=== PATIENT | male | born 1945 | race Two or more races ===

== ENCOUNTER 2018-05-18 15:46 | Emergency (ER) | payer MEDICARE, BC ==
[~2018-05-18] VITALS: Ht 172.7 cm; Wt 77.3 kg
[2018-05-18] MEDS ORDERED: aspirin 81mg tab.chew PO ONE (15:55)
[2018-05-18] MEDS ORDERED: normal saline 1000ML IV soln IVB ONE (15:55)
[2018-05-18] MEDS ORDERED: diltiazem 5mg/ml 5ml inj. IV ONE (15:55)
[2018-05-18 16:03] LABS: BASOPHILS % (AUTO) 0.3 % (0-1); EOSINOPHILS # (AUTO) 0.2 X10'3 (0-0.9); EOSINOPHILS % (AUTO) 1.7 % (0-6); HEMATOCRIT 34.4 % (42.0-52.0); HEMOGLOBIN 11.1 g/dl (14.0-17.9); LYMPHOCYTES # (AUTO) 1.4 X10'3 (1.1-4.8); LYMPHOCYTES % (AUTO) 9.9 % (21-51); MEAN CORPUSCULAR HEMOGLOBIN 27.9 PG (27.0-31.0); MEAN CORPUSCULAR HGB CONC 32.3 % (33.0-36.5); MEAN CORPUSCULAR VOLUME 86.4 FL (78-98); MEAN PLATELET VOLUME 7.2 FL (7.4-10.4); MONOCYTES # (AUTO) 0.7 X10'3 (0-0.9); MONOCYTES % (AUTO) 4.9 % (2-12); NEUTROPHILS # (AUTO) 12.2 X10'3 (1.8-7.7); NEUTROPHILS % (AUTO) 83.2 % (42-75); PLATELET COUNT 297 X10'3 (140-440); RED BLOOD COUNT 3.98 X10'6 (4.70-6.10); RED CELL DISTRIBUTION WIDTH 16.9 % (11.5-14.5); WHITE BLOOD COUNT 14.6 X10'3 (4.5-11.0)
[2018-05-18 16:17] LABS: ALANINE AMINOTRANSFERASE 27 U/L (12-78); ALBUMIN 2.5 G/DL (3.4-5.0); ALKALINE PHOSPHATASE 58 IU/L (46-116); ANION GAP 11 (8-16); CALCIUM 9.2 MG/DL (8.5-10.1); CHLORIDE 103 MMOL/L (99-107); CREATININE 1.51 MG/DL (0.60-1.10); POTASSIUM 4.1 MMOL/L (3.5-5.1); SODIUM 140 MMOL/L (135-145); TOTAL CARBON DIOXIDE 25.6 MMOL/L (24-32); eGFR 45 ML/MIN
[2018-05-18 16:25] LABS: ALBUMIN/GLOBULIN RATIO 0.5 (1.1-1.5); ASPARTATE AMINO TRANSFERASE 20 U/L (10-37); BILIRUBIN,TOTAL 0.3 MG/DL (0.1-1.0); BLOOD UREA NITROGEN 18 MG/DL (7-18); BUN/CREATININE RATIO 11.9 (5.4-32.0); GLUCOSE 206 MG/DL (70-104); TOTAL PROTEIN 7.4 G/DL (6.4-8.2)
[2018-05-18 16:27] LABS: MAGNESIUM 1.9 MG/DL (1.5-2.4)
[2018-05-18] MEDS ORDERED: METO-395 PO (16:54)
[2018-05-18 19:25] VITALS: BP 117/79
[2018-05-19] MEDS ORDERED: POTA10TA10 PO (13:32)
[2018-05-19] MEDS ORDERED: HYDR-4353 PO (13:32)
[2018-05-19] MEDS ORDERED: FLO0.4C PO (13:32)
[2018-05-19] MEDS ORDERED: METF500T PO (13:32)
[2018-05-19] MEDS ORDERED: ALB0.5UD IH (13:32)
[2018-05-19] MEDS ORDERED: FURO-150 PO (13:32)
[2018-05-19] MEDS ORDERED: ALBU18HF2 INH (13:32)
[2018-05-19] MEDS ORDERED: MYCO250C46 PO (13:32)
[2018-05-19] MEDS ORDERED: SULF1TAB48 PO (13:32)
[2018-05-19] MEDS ORDERED: PRED5TAB PO (13:32)
[2018-05-19] MEDS ORDERED: GABA600T2 PO (13:32)
[2018-05-19] MEDS ORDERED: RIVA15TA PO (13:32)
== END 2018-05-18 19:56 | disposition home or self-care (01) ==
LOC: ER 15:47
DX: R42 Dizziness and giddiness (principal); I48.91 Unspecified atrial fibrillation; G89.29 Other chronic pain; Z79.899 Other long term (current) drug therapy
CPT/HCPCS: 36415; 71045; 80053; 83735; 83880; 84439; 84443; 84484; 85025; 93005; 96361; 96374; 99285; J3490

== ENCOUNTER 2018-05-19 12:54 | Inpatient (IN) | payer MEDICARE, OTHER ==
[~2018-05-19] VITALS: Ht 172.7 cm; Wt 68.4 kg
[~2018-05-19 12:54] MED LIST: METO-395 PO; etomidate 2mg/ml inj. ONE; rocuronium 10mg/ml inj IV ONE
[2018-05-19] MEDS ORDERED: aspirin 81mg tab.chew PO ONE (12:55)
[2018-05-19] MEDS ORDERED: diltiazem 5mg/ml 5ml inj. IV ONE (13:00)
[2018-05-19 13:20] LABS: BASOPHILS % (AUTO) 0.1 % (0-1); EOSINOPHILS # (AUTO) 0.4 X10'3 (0-0.9); EOSINOPHILS % (AUTO) 1.9 % (0-6); HEMATOCRIT 31.4 % (42.0-52.0); HEMOGLOBIN 9.9 g/dl (14.0-17.9); LYMPHOCYTES # (AUTO) 1.4 X10'3 (1.1-4.8); LYMPHOCYTES % (AUTO) 7.7 % (21-51); MEAN CORPUSCULAR HEMOGLOBIN 27.7 PG (27.0-31.0); MEAN CORPUSCULAR HGB CONC 31.5 % (33.0-36.5); MEAN CORPUSCULAR VOLUME 87.9 FL (78-98); MEAN PLATELET VOLUME 7.1 FL (7.4-10.4); MONOCYTES # (AUTO) 0.8 X10'3 (0-0.9); MONOCYTES % (AUTO) 4.5 % (2-12); NEUTROPHILS % (AUTO) 85.8 % (42-75); PLATELET COUNT 308 X10'3 (140-440); RED BLOOD COUNT 3.57 X10'6 (4.70-6.10); RED CELL DISTRIBUTION WIDTH 16.7 % (11.5-14.5); WHITE BLOOD COUNT 18.6 X10'3 (4.5-11.0)
[2018-05-19] MEDS ORDERED: ALB0.5UD IH (13:32)
[2018-05-19] MEDS ORDERED: FURO-150 PO (13:32)
[2018-05-19] MEDS ORDERED: HYDR-4353 PO (13:32)
[2018-05-19] MEDS ORDERED: MYCO250C46 PO (13:32)
[2018-05-19] MEDS ORDERED: RIVA15TA PO (13:32)
[2018-05-19] MEDS ORDERED: FLO0.4C PO (13:32)
[2018-05-19] MEDS ORDERED: POTA10TA10 PO (13:32)
[2018-05-19] MEDS ORDERED: METF500T PO (13:32)
[2018-05-19] MEDS ORDERED: SULF1TAB48 PO (13:32)
[2018-05-19] MEDS ORDERED: PRED5TAB PO (13:32)
[2018-05-19] MEDS ORDERED: ALBU18HF2 INH (13:32)
[2018-05-19] MEDS ORDERED: GABA600T2 PO (13:32)
[2018-05-19 13:39] LABS: D-DIMER 0.58 MG/L FEU (0-0.50); INR 1.5 INR; PARTIAL THROMBOPLASTIN TIME 26 SECONDS (22-32); PROTHROMBIN TIME 15.1 SECONDS (9.0-12.0)
[2018-05-19 13:44] LABS: ALANINE AMINOTRANSFERASE 24 U/L (12-78); ALBUMIN 2.4 G/DL (3.4-5.0); ALKALINE PHOSPHATASE 53 IU/L (46-116); ANION GAP 13 (8-16); CALCIUM 8.9 MG/DL (8.5-10.1); CHLORIDE 103 MMOL/L (99-107); CREATININE 1.47 MG/DL (0.60-1.10); MAGNESIUM 1.6 MG/DL (1.5-2.4); POTASSIUM 3.9 MMOL/L (3.5-5.1); SODIUM 142 MMOL/L (135-145); TOTAL CARBON DIOXIDE 25.6 MMOL/L (24-32); eGFR 47 ML/MIN
[2018-05-19 13:49] LABS: ALBUMIN/GLOBULIN RATIO 0.5 (1.1-1.5); ASPARTATE AMINO TRANSFERASE 15 U/L (10-37); BILIRUBIN,TOTAL 0.3 MG/DL (0.1-1.0); BLOOD UREA NITROGEN 19 MG/DL (7-18); BUN/CREATININE RATIO 12.9 (5.4-32.0); GLUCOSE 223 MG/DL (70-104); TOTAL PROTEIN 6.8 G/DL (6.4-8.2)
[2018-05-19] MEDS ORDERED: magnesium 4gm in 100ml NS 100 ML IV PRN (15:00)
[2018-05-19] MEDS ORDERED: morphine 2 MG/ML inj. syringe IV PRN (15:00)
[2018-05-19] MEDS ORDERED: magnesium 1gm/100ml D5W IVPB 100 ML IV PRN (15:00)
[2018-05-19] MEDS ORDERED: potassium Cl 40MEQ/NS 500ml 500 ML IV PRN ×2 (15:00)
[2018-05-19] MEDS ORDERED: potassium Cl 20 mEq SR tablet PO PRN ×2 (15:00)
[2018-05-19] MEDS ORDERED: HYDROcodone/acetaminophen 5mg/325mg tablet PO PRN (15:00)
[2018-05-19] MEDS ORDERED: magnesium Cl slow-release 64mg tablet PO PRN (15:00)
[2018-05-19] MEDS ORDERED: ondansetron/PF 4mg/2ml inj IV PRN (15:00)
[2018-05-19] MEDS ORDERED: acetaminophen 325mg tablet PO PRN ×2 (15:00)
[2018-05-19] MEDS ORDERED: mag hydrox/Alum hydrox/simeth 30ml oral suspension PO PRN (15:00)
[2018-05-19] MEDS ORDERED: dextrose ORAL solution 15 GM/59 ML bottle PO PRN ×2 (15:10)
[2018-05-19] MEDS ORDERED: MESSAGE TO PHARMACY PO ONE (15:10)
[2018-05-19] MEDS ORDERED: glucagon, human recombinant 1mg kit SUBCUT PRN (15:10)
[2018-05-19] MEDS ORDERED: dextrose 50%-water 50ml dispensing syringe IV PRN ×2 (15:10)
[2018-05-19] MEDS: normal saline 1000ml 1,000 ML IV SCH (15:37)
[2018-05-19] MEDS: CefTRIAXone 2gm/D5W 50ml 50 ML IV SCH (15:38)
[2018-05-19 16:05] VITALS: BP 113/73
[2018-05-19 17:29] LABS: HEMOGLOBIN A1C 8.2 % (4.5-6.2)
[2018-05-19] MEDS ORDERED: iohexol 350MG/ML 100ml bottle IV ONE (17:46)
[2018-05-19] MEDS: MESSAGE TO NURSING PO NR (18:00)
[2018-05-19 19:00] VITALS: BP 110/72
[2018-05-19] MEDS: metoprolol succinate 25mg (24-HOUR) SR. Tablet PO SCH (19:35)
[2018-05-19] MEDS: rivaroxaban 15mg tablet PO SCH (19:35)
[2018-05-19] MEDS: albuterol 2.5 MG/3 ML nebule NEB SCH ×3 (19:38→23:52)
[2018-05-19] MEDS: insulin Lispro (HumaLOG) vial - multi-dose SQ SCH (19:41)
[2018-05-19] MEDS ORDERED: mycophenolate mofetil 250mg capsule PO SCH (20:00)
[2018-05-19] MEDS ORDERED: diltiazem 30mg tablet PO SCH (20:00)
[2018-05-19] MEDS ORDERED: temazepam 15mg capsule PO PRN (21:00)
[2018-05-19] MEDS: insulin glargine (Lantus) pen - multi-dose SQ SCH (21:32)
[2018-05-20] VITALS (22 sets, daily range): BP systolic 79–155; BP diastolic 50–98
[2018-05-20 00:26] LABS: ABG BASE EXCESS 0.1 mmol/L (-2.0-3.0); ABG OXYGEN SATURATION 91.1 % (95-98); ABG PCO2 (T) 35.5 mmHg (35.0-48.0); ABG PH (T) 7.446 (7.350-7.450); ABG PO2 (T) 59.7 mmHg (83-108); ALLEN'S TEST Positive; FCOHb 0.3 % (0.5-1.5); FLOW 15 L/min; FMetHb 0.1 % (0.3-1.12); FO2Hb 90.7 % (94-100); PATIENT TEMPERATURE 36.7; TOTAL HEMOGLOBIN 10.3 G/dl (14.0-18.0)
[2018-05-20] MEDS ORDERED: furosemide 10 MG/1 ML 10ml inj IV ONE (00:35)
[2018-05-20 01:10] LABS: BASOPHILS % (AUTO) 0.1 % (0-1); EOSINOPHILS % (AUTO) 0.1 % (0-6); HEMATOCRIT 28.3 % (42.0-52.0); HEMOGLOBIN 9.6 g/dl (14.0-17.9); LYMPHOCYTES # (AUTO) 2.1 X10'3 (1.1-4.8); LYMPHOCYTES % (AUTO) 12.2 % (21-51); MEAN CORPUSCULAR HEMOGLOBIN 29.3 PG (27.0-31.0); MEAN CORPUSCULAR HGB CONC 33.8 % (33.0-36.5); MEAN CORPUSCULAR VOLUME 86.7 FL (78-98); MEAN PLATELET VOLUME 7.4 FL (7.4-10.4); MONOCYTES # (AUTO) 0.9 X10'3 (0-0.9); MONOCYTES % (AUTO) 5.1 % (2-12); NEUTROPHILS # (AUTO) 14.1 X10'3 (1.8-7.7); NEUTROPHILS % (AUTO) 82.5 % (42-75); PLATELET COUNT 255 X10'3 (140-440); RED BLOOD COUNT 3.27 X10'6 (4.70-6.10); RED CELL DISTRIBUTION WIDTH 15.5 % (11.5-14.5); WHITE BLOOD COUNT 17.1 X10'3 (4.5-11.0)
[2018-05-20 01:20] LABS: ALANINE AMINOTRANSFERASE 22 U/L (12-78); ALBUMIN 2.2 G/DL (3.4-5.0); ALKALINE PHOSPHATASE 49 IU/L (46-116); ANION GAP 7 (8-16); CHLORIDE 105 MMOL/L (99-107); CREATININE 1.15 MG/DL (0.60-1.10); POTASSIUM 3.9 MMOL/L (3.5-5.1); SODIUM 143 MMOL/L (135-145); TOTAL CARBON DIOXIDE 30.8 MMOL/L (24-32); eGFR 62 ML/MIN
[2018-05-20 01:22] LABS: BILIRUBIN,TOTAL 0.2 MG/DL (0.1-1.0); BLOOD UREA NITROGEN 17 MG/DL (7-18); BUN/CREATININE RATIO 14.8 (5.4-32.0); CALCIUM 8.8 MG/DL (8.5-10.1); GLUCOSE 111 MG/DL (70-104)
[2018-05-20 01:23] LABS: ALBUMIN/GLOBULIN RATIO 0.5 (1.1-1.5); ASPARTATE AMINO TRANSFERASE 16 U/L (10-37); TOTAL PROTEIN 6.6 G/DL (6.4-8.2)
[2018-05-20 01:24] LABS: MAGNESIUM 1.6 MG/DL (1.5-2.4)
[2018-05-20 01:55] LABS: ABG BASE EXCESS -1.3 mmol/L (-2.0-3.0); ABG HCO3 22.9 mmol/L (22.0-26.0); ABG OXYGEN SATURATION 87.9 % (95-98); ABG PCO2 (T) 36.6 mmHg (35.0-48.0); ABG PH (T) 7.415 (7.350-7.450); ABG PO2 (T) 55.8 mmHg (83-108); ALLEN'S TEST Positive; FCOHb 0.3 % (0.5-1.5); FMetHb 0.1 % (0.3-1.12); FO2Hb 87.5 % (94-100); MINUTE VOLUME 33 L/min; RESPIRATORY RATE 16 b/min; RESPIRATORY RATE (OBSERVED) 39 b/min; TOTAL HEMOGLOBIN 11.4 G/dl (14.0-18.0)
[2018-05-20] MEDS ORDERED: MIDAZolam 5mg/ml 2ml vial ONE (02:09)
[2018-05-20] MEDS: methylPREDNISolone sod succ 125mg/2ml vial IV SCH ×4 (02:30→19:54)
[2018-05-20] MEDS: FENTANYL-0.9 % NACL/PF 100 ML IV PRN ×2 (02:32→15:54)
[2018-05-20] MEDS: midazolam 100mg in NS 100ml 100 ML IV PRN ×2 (02:33→18:50)
[2018-05-20] MEDS ORDERED: etomidate 2mg/ml inj. IV ONE (02:35)
[2018-05-20] MEDS ORDERED: rocuronium 10mg/ml inj IV ONE (02:35)
[2018-05-20 02:36] LABS: ABG BASE EXCESS 0.1 mmol/L (-2.0-3.0); ABG PCO2 (T) 65.5 mmHg (35.0-48.0); ABG PH (T) 7.255 (7.350-7.450); ABG PO2 (T) 207.7 mmHg (83-108); ALLEN'S TEST Positive; FCOHb 0.3 % (0.5-1.5); FMetHb 0.4 % (0.3-1.12); FO2Hb 98.3 % (94-100); MINUTE VOLUME 6 L/min; PATIENT TEMPERATURE 38.3; PEEP 5 cm H2O; RESPIRATORY RATE 16 b/min; TIDAL VOLUME 400 mL; TOTAL HEMOGLOBIN 11.5 G/dl (14.0-18.0)
[2018-05-20] MEDS ORDERED: diltiazem 5mg/ml 5ml inj. IV ONE (02:40)
[2018-05-20] MEDS: azithromycin/NS 500mg/250ml 250 ML IV SCH (02:45)
[2018-05-20] MEDS: diltiazem-NS 100mg/100ml 100 ML IV SCH ×2 (03:00→22:06)
[2018-05-20] MEDS: ipratropium/albuterol 3ml nebule NEB SCH ×6 (03:58→22:26)
[2018-05-20 04:19] LABS: CLARITY,URINE CLEAR (Clear); COLOR,URINE YELLOW (Yellow); GLUCOSE, URINE NEGATIVE (Neg); KETONES,URINE NEGATIVE (Neg); LEUKOCYTE ESTERASE ,URINE NEGATIVE (Neg); NITRITES, URINE NEGATIVE (Neg); OCCULT BLOOD,URINE LARGE (Neg); PROTEIN,URINE NEGATIVE (Neg); UROBILINOGEN,URINE 0.2 E.U/dL (0.2-1.0)
[2018-05-20 04:25] LABS: UA COLLECTION TYPE NON-SPECIFIED
[2018-05-20 04:26] LABS: BACTERIA,URINE NONE SEEN /HPF (Neg); SQUAMOUS EPITHELIAL CELL,UR FEW /LPF (FEW); WBC,URINE NONE SEEN /HPF (0-4)
[2018-05-20] MEDS: normal saline 1000ml 1,000 ML IV SCH ×2 (05:57→15:50)
[2018-05-20] MEDS: K and/or MAG REPLACEMENT MC SCH (07:46)
[2018-05-20] MEDS: metoprolol succinate 25mg (24-HOUR) SR. Tablet PO SCH ×2 (07:47→19:55)
[2018-05-20] MEDS: CefTRIAXone 2gm/D5W 50ml 50 ML IV SCH (07:54)
[2018-05-20] MEDS: tamsulosin 0.4mg capsule PO SCH (07:54)
[2018-05-20] MEDS: pantoprazole 40 MG vial IV SCH (07:54)
[2018-05-20] MEDS ORDERED: methylPREDNISolone sod succ 125mg/2ml vial IV SCH (08:00)
[2018-05-20] MEDS: rivaroxaban 15mg tablet PO SCH ×2 (08:19→19:54)
[2018-05-20] MEDS: MESSAGE TO NURSING PO NR (08:20)
[2018-05-20] MEDS: insulin Lispro (HumaLOG) vial - multi-dose SQ SCH ×2 (14:08→20:37)
[2018-05-20] MEDS: insulin glargine (Lantus) pen - multi-dose SQ SCH (20:38)
[2018-05-21] VITALS (26 sets, daily range): BP systolic 80–140; BP diastolic 59–94
[2018-05-21] MEDS: methylPREDNISolone sod succ 125mg/2ml vial IV SCH ×4 (01:58→23:20)
[2018-05-21] MEDS: insulin Lispro (HumaLOG) vial - multi-dose SQ SCH ×2 (02:02→08:40)
[2018-05-21] MEDS: normal saline 1000ml 1,000 ML IV SCH ×4 (03:01→20:34)
[2018-05-21] MEDS: azithromycin/NS 500mg/250ml 250 ML IV SCH (03:01)
[2018-05-21] MEDS: ipratropium/albuterol 3ml nebule NEB SCH ×6 (03:44→22:59)
[2018-05-21] MEDS ORDERED: normal saline 500ml IV soln 500 ML IV ONE (04:50)
[2018-05-21 04:55] LABS: ABG BASE EXCESS 0.8 mmol/L (-2.0-3.0); ABG HCO3 24.4 mmol/L (22.0-26.0); ABG OXYGEN SATURATION 97.4 % (95-98); ABG PH (T) 7.473 (7.350-7.450); ABG PO2 (T) 99.6 mmHg (83-108); ALLEN'S TEST Positive; FCOHb 0.1 % (0.5-1.5); FMetHb 0.1 % (0.3-1.12); FO2Hb 97.2 % (94-100); MINUTE VOLUME 8 L/min; PATIENT TEMPERATURE 36.7; PEEP 5 cm H2O; RESPIRATORY RATE 20 b/min; RESPIRATORY RATE (OBSERVED) 20 b/min; TIDAL VOLUME 400 mL; TOTAL HEMOGLOBIN 7.8 G/dl (14.0-18.0)
[2018-05-21 06:27] LABS: BASOPHILS % (AUTO) 0 % (0-1); EOSINOPHILS # (AUTO) 0.2 X10'3 (0-0.9); EOSINOPHILS % (AUTO) 1.7 % (0-6); LYMPHOCYTES # (AUTO) 1.6 X10'3 (1.1-4.8); LYMPHOCYTES % (AUTO) 12.7 % (21-51); MEAN CORPUSCULAR HEMOGLOBIN 27.8 PG (27.0-31.0); MEAN CORPUSCULAR HGB CONC 31.7 % (33.0-36.5); MEAN CORPUSCULAR VOLUME 87.6 FL (78-98); MEAN PLATELET VOLUME 7.6 FL (7.4-10.4); MONOCYTES # (AUTO) 0.4 X10'3 (0-0.9); NEUTROPHILS # (AUTO) 10.5 X10'3 (1.8-7.7); NEUTROPHILS % (AUTO) 82.6 % (42-75); PLATELET COUNT 202 X10'3 (140-440); RED BLOOD COUNT 2.52 X10'6 (4.70-6.10); RED CELL DISTRIBUTION WIDTH 16.8 % (11.5-14.5); WHITE BLOOD COUNT 12.8 X10'3 (4.5-11.0)
[2018-05-21 06:43] LABS: ALANINE AMINOTRANSFERASE 17 U/L (12-78); ALBUMIN 1.7 G/DL (3.4-5.0); ALBUMIN/GLOBULIN RATIO 0.5 (1.1-1.5); ALKALINE PHOSPHATASE 35 IU/L (46-116); ANION GAP 8 (8-16); ASPARTATE AMINO TRANSFERASE 11 U/L (10-37); BILIRUBIN,TOTAL 0.3 MG/DL (0.1-1.0); BLOOD UREA NITROGEN 16 MG/DL (7-18); BUN/CREATININE RATIO 16.8 (5.4-32.0); CALCIUM 7.4 MG/DL (8.5-10.1); CHLORIDE 109 MMOL/L (99-107); CREATININE 0.95 MG/DL (0.60-1.10); MAGNESIUM 1.4 MG/DL (1.5-2.4); POTASSIUM 3.7 MMOL/L (3.5-5.1); SODIUM 144 MMOL/L (135-145); TOTAL CARBON DIOXIDE 26.7 MMOL/L (24-32); TOTAL PROTEIN 5.1 G/DL (6.4-8.2); eGFR 77 ML/MIN
[2018-05-21 06:50] LABS: GLUCOSE 163 MG/DL (70-104)
[2018-05-21] MEDS: K and/or MAG REPLACEMENT MC SCH (08:00)
[2018-05-21] MEDS: mineral oil/petrolatum ophthal oint EACHEYE SCH ×3 (08:00→20:00)
[2018-05-21] MEDS: CefTRIAXone 2gm/D5W 50ml 50 ML IV SCH (08:22)
[2018-05-21] MEDS: tamsulosin 0.4mg capsule PO SCH (08:22)
[2018-05-21] MEDS: pantoprazole 40 MG vial IV SCH ×2 (08:22→20:07)
[2018-05-21 08:29] LABS: INR 1.7 INR; PARTIAL THROMBOPLASTIN TIME 28 SECONDS (22-32); PROTHROMBIN TIME 17.1 SECONDS (9.0-12.0)
[2018-05-21] MEDS: MESSAGE TO NURSING PO NR (08:47)
[2018-05-21] MEDS: rivaroxaban 15mg tablet PO SCH ×2 (10:52→20:00)
[2018-05-21] MEDS ORDERED: dexmedetomidin/NS 400mcg/100ml 100 ML IV SCH (11:30)
[2018-05-21] MEDS: metoprolol succinate 25mg (24-HOUR) SR. Tablet PO SCH ×2 (11:44→23:20)
[2018-05-21 13:39] LABS: HEMATOCRIT 28.9 % (42.0-52.0); HEMOGLOBIN 9.2 g/dl (14.0-17.9); MEAN CORPUSCULAR HEMOGLOBIN 27.8 PG (27.0-31.0); MEAN CORPUSCULAR HGB CONC 31.8 % (33.0-36.5); MEAN CORPUSCULAR VOLUME 87.5 FL (78-98); MEAN PLATELET VOLUME 7.3 FL (7.4-10.4); PLATELET COUNT 240 X10'3 (140-440); RED CELL DISTRIBUTION WIDTH 16.6 % (11.5-14.5); WHITE BLOOD COUNT 17.8 X10'3 (4.5-11.0)
[2018-05-21] MEDS: diltiazem-NS 100mg/100ml 100 ML IV SCH (18:40)
[2018-05-21] MEDS: insulin glargine (Lantus) pen - multi-dose SQ SCH (21:35)
[2018-05-22] VITALS (23 sets, daily range): BP systolic 110–160; BP diastolic 50–95
[2018-05-22] MEDS: mineral oil/petrolatum ophthal oint EACHEYE SCH ×4 (02:00→20:00)
[2018-05-22] MEDS: ipratropium/albuterol 3ml nebule NEB SCH ×6 (03:07→23:17)
[2018-05-22] MEDS: azithromycin/NS 500mg/250ml 250 ML IV SCH (03:16)
[2018-05-22] MEDS: normal saline 1000ml 1,000 ML IV SCH ×3 (03:16→16:42)
[2018-05-22 06:14] LABS: BASOPHILS % (AUTO) 0 % (0-1); EOSINOPHILS # (AUTO) 0.2 X10'3 (0-0.9); EOSINOPHILS % (AUTO) 1.8 % (0-6); HEMATOCRIT 27.1 % (42.0-52.0); HEMOGLOBIN 8.8 g/dl (14.0-17.9); LYMPHOCYTES # (AUTO) 1.1 X10'3 (1.1-4.8); LYMPHOCYTES % (AUTO) 8.9 % (21-51); MEAN CORPUSCULAR HEMOGLOBIN 28.5 PG (27.0-31.0); MEAN CORPUSCULAR HGB CONC 32.6 % (33.0-36.5); MEAN CORPUSCULAR VOLUME 87.3 FL (78-98); MEAN PLATELET VOLUME 7.6 FL (7.4-10.4); MONOCYTES # (AUTO) 0.4 X10'3 (0-0.9); NEUTROPHILS % (AUTO) 86.3 % (42-75); PLATELET COUNT 220 X10'3 (140-440); RED CELL DISTRIBUTION WIDTH 16.3 % (11.5-14.5); WHITE BLOOD COUNT 12.8 X10'3 (4.5-11.0)
[2018-05-22 06:38] LABS: ALANINE AMINOTRANSFERASE 20 U/L (12-78); ALBUMIN 1.9 G/DL (3.4-5.0); ALBUMIN/GLOBULIN RATIO 0.5 (1.1-1.5); ALKALINE PHOSPHATASE 39 IU/L (46-116); ANION GAP 9 (8-16); ASPARTATE AMINO TRANSFERASE 14 U/L (10-37); BILIRUBIN,TOTAL 0.4 MG/DL (0.1-1.0); BLOOD UREA NITROGEN 19 MG/DL (7-18); BUN/CREATININE RATIO 18.1 (5.4-32.0); CALCIUM 7.8 MG/DL (8.5-10.1); CHLORIDE 111 MMOL/L (99-107); CREATININE 1.05 MG/DL (0.60-1.10); GLUCOSE 165 MG/DL (70-104); MAGNESIUM 1.7 MG/DL (1.5-2.4); POTASSIUM 3.5 MMOL/L (3.5-5.1); SODIUM 147 MMOL/L (135-145); TOTAL CARBON DIOXIDE 26.9 MMOL/L (24-32); TOTAL PROTEIN 5.6 G/DL (6.4-8.2); eGFR 69 ML/MIN
[2018-05-22] MEDS: pantoprazole 40 MG vial IV SCH ×2 (07:31→20:45)
[2018-05-22] MEDS: CefTRIAXone 2gm/D5W 50ml 50 ML IV SCH (07:32)
[2018-05-22] MEDS: methylPREDNISolone sod succ 125mg/2ml vial IV SCH ×2 (07:32→16:37)
[2018-05-22] MEDS: rivaroxaban 15mg tablet PO SCH (08:00)
[2018-05-22] MEDS: K and/or MAG REPLACEMENT MC SCH (08:00)
[2018-05-22] MEDS: metoprolol succinate 25mg (24-HOUR) SR. Tablet PO SCH ×2 (08:19→16:37)
[2018-05-22] MEDS: tamsulosin 0.4mg capsule PO SCH (08:19)
[2018-05-22] MEDS: insulin Lispro (HumaLOG) vial - multi-dose SQ SCH ×3 (08:42→19:45)
[2018-05-22] MEDS: lactobacillus rhamnosus 10,000 MMU CELLS/CAPSULE PO SCH (20:45)
[2018-05-22] MEDS: insulin glargine (Lantus) pen - multi-dose SQ SCH (22:14)
[2018-05-23] VITALS (16 sets, daily range): BP systolic 17–167; BP diastolic 77–108
[2018-05-23] MEDS: metoprolol succinate 25mg (24-HOUR) SR. Tablet PO SCH ×3 (00:08→15:06)
[2018-05-23] MEDS: methylPREDNISolone sod succ 125mg/2ml vial IV SCH ×3 (00:08→15:06)
[2018-05-23] MEDS: mineral oil/petrolatum ophthal oint EACHEYE SCH (02:00)
[2018-05-23] MEDS: ipratropium/albuterol 3ml nebule NEB SCH ×6 (03:19→23:42)
[2018-05-23] MEDS: azithromycin/NS 500mg/250ml 250 ML IV SCH (03:24)
[2018-05-23 05:43] LABS: BASOPHILS % (AUTO) 0.1 % (0-1); EOSINOPHILS # (AUTO) 0.2 X10'3 (0-0.9); EOSINOPHILS % (AUTO) 1.6 % (0-6); HEMATOCRIT 27.4 % (42.0-52.0); HEMOGLOBIN 8.8 g/dl (14.0-17.9); LYMPHOCYTES # (AUTO) 1.1 X10'3 (1.1-4.8); LYMPHOCYTES % (AUTO) 9.1 % (21-51); MEAN CORPUSCULAR HEMOGLOBIN 27.9 PG (27.0-31.0); MEAN CORPUSCULAR HGB CONC 32.3 % (33.0-36.5); MEAN CORPUSCULAR VOLUME 86.3 FL (78-98); MEAN PLATELET VOLUME 7.1 FL (7.4-10.4); MONOCYTES # (AUTO) 0.5 X10'3 (0-0.9); MONOCYTES % (AUTO) 3.9 % (2-12); NEUTROPHILS # (AUTO) 10.3 X10'3 (1.8-7.7); NEUTROPHILS % (AUTO) 85.3 % (42-75); PLATELET COUNT 225 X10'3 (140-440); RED BLOOD COUNT 3.17 X10'6 (4.70-6.10); RED CELL DISTRIBUTION WIDTH 16.5 % (11.5-14.5)
[2018-05-23 05:55] LABS: ALANINE AMINOTRANSFERASE 19 U/L (12-78); ALBUMIN 1.9 G/DL (3.4-5.0); ALBUMIN/GLOBULIN RATIO 0.5 (1.1-1.5); ALKALINE PHOSPHATASE 38 IU/L (46-116); ANION GAP 9 (8-16); ASPARTATE AMINO TRANSFERASE 15 U/L (10-37); BILIRUBIN,TOTAL 0.4 MG/DL (0.1-1.0); BLOOD UREA NITROGEN 20 MG/DL (7-18); CALCIUM 7.7 MG/DL (8.5-10.1); CHLORIDE 111 MMOL/L (99-107); MAGNESIUM 1.7 MG/DL (1.5-2.4); POTASSIUM 3.1 MMOL/L (3.5-5.1); SODIUM 147 MMOL/L (135-145); TOTAL CARBON DIOXIDE 26.7 MMOL/L (24-32); TOTAL PROTEIN 5.5 G/DL (6.4-8.2); eGFR > 90 ML/MIN
[2018-05-23 05:56] LABS: GLUCOSE 128 MG/DL (70-104)
[2018-05-23] MEDS: K and/or MAG REPLACEMENT MC SCH (07:06)
[2018-05-23] MEDS: pantoprazole 40 MG vial IV SCH ×2 (07:14→22:01)
[2018-05-23] MEDS: lactobacillus rhamnosus 10,000 MMU CELLS/CAPSULE PO SCH ×2 (07:15→22:01)
[2018-05-23] MEDS: rivaroxaban 15mg tablet PO SCH ×2 (07:15→22:01)
[2018-05-23] MEDS: CefTRIAXone 2gm/D5W 50ml 50 ML IV SCH (07:15)
[2018-05-23] MEDS: tamsulosin 0.4mg capsule PO SCH (07:15)
[2018-05-23] MEDS: insulin Lispro (HumaLOG) vial - multi-dose SQ SCH ×2 (08:40→12:58)
[2018-05-23] MEDS ORDERED: magnesium 1gm/100ml D5W IVPB 100 ML IV PRN (09:10)
[2018-05-23] MEDS ORDERED: magnesium 4gm in 100ml NS 100 ML IV PRN (09:10)
[2018-05-23] MEDS ORDERED: potassium Cl 20 mEq SR tablet PO PRN ×2 (09:10)
[2018-05-23] MEDS ORDERED: potassium Cl 40MEQ/NS 500ml 500 ML IV PRN ×2 (09:10)
[2018-05-23] MEDS ORDERED: magnesium Cl slow-release 64mg tablet PO PRN (09:10)
[2018-05-23] MEDS: magnesium hydroxide 30ml (MOM) UD suspension PO PRN (15:15)
[2018-05-23] MEDS: normal saline 1000ml 1,000 ML IV SCH ×2 (15:16→23:50)
[2018-05-23] MEDS: insulin glargine (Lantus) pen - multi-dose SQ SCH (22:01)
[2018-05-24] VITALS (9 sets, daily range): BP systolic 111–166; BP diastolic 80–136
[2018-05-24] MEDS: methylPREDNISolone sod succ 125mg/2ml vial IV SCH ×2 (00:49→09:22)
[2018-05-24] MEDS: metoprolol succinate 25mg (24-HOUR) SR. Tablet PO SCH ×3 (00:53→17:11)
[2018-05-24] MEDS: ipratropium/albuterol 3ml nebule NEB SCH ×6 (03:16→23:23)
[2018-05-24] MEDS: azithromycin/NS 500mg/250ml 250 ML IV SCH (04:00)
[2018-05-24] MEDS ORDERED: PEG 3350/Na sulf,bicarb,Cl/KCl oral sol 4 liter bottle PO ONE (07:00)
[2018-05-24] MEDS: K and/or MAG REPLACEMENT MC SCH (08:00)
[2018-05-24 08:41] LABS: ABG BASE EXCESS 3.4 mmol/L (-2.0-3.0); ABG HCO3 25.9 mmol/L (22.0-26.0); ABG OXYGEN SATURATION 85.8 % (95-98); ABG PCO2 (T) 32.5 mmHg (35.0-48.0); ABG PO2 (T) 47.2 mmHg (83-108); ALLEN'S TEST Positive; FCOHb 0.3 % (0.5-1.5); FMetHb 0.1 % (0.3-1.12); FO2Hb 85.5 % (94-100); TOTAL HEMOGLOBIN 11.7 G/dl (14.0-18.0)
[2018-05-24] MEDS: tamsulosin 0.4mg capsule PO SCH (09:22)
[2018-05-24] MEDS: lactobacillus rhamnosus 10,000 MMU CELLS/CAPSULE PO SCH ×2 (09:22→19:44)
[2018-05-24] MEDS: rivaroxaban 15mg tablet PO SCH ×2 (09:23→19:44)
[2018-05-24] MEDS: CefTRIAXone 2gm/D5W 50ml 50 ML IV SCH (09:24)
[2018-05-24] MEDS: pantoprazole 40 MG vial IV SCH (09:24)
[2018-05-24 10:02] LABS: BASOPHILS # (AUTO) 0.1 X10'3 (0-0.2); BASOPHILS % (AUTO) 0.4 % (0-1); EOSINOPHILS % (AUTO) 0 % (0-6); HEMATOCRIT 34.1 % (42.0-52.0); HEMOGLOBIN 10.9 g/dl (14.0-17.9); LYMPHOCYTES # (AUTO) 1.9 X10'3 (1.1-4.8); LYMPHOCYTES % (AUTO) 10.2 % (21-51); MEAN CORPUSCULAR HEMOGLOBIN 27.9 PG (27.0-31.0); MEAN CORPUSCULAR HGB CONC 32.1 % (33.0-36.5); MEAN PLATELET VOLUME 7.3 FL (7.4-10.4); MONOCYTES # (AUTO) 0.2 X10'3 (0-0.9); MONOCYTES % (AUTO) 1.2 % (2-12); NEUTROPHILS # (AUTO) 16.6 X10'3 (1.8-7.7); NEUTROPHILS % (AUTO) 88.2 % (42-75); PLATELET COUNT 265 X10'3 (140-440); RED BLOOD COUNT 3.91 X10'6 (4.70-6.10); RED CELL DISTRIBUTION WIDTH 16.4 % (11.5-14.5); WHITE BLOOD COUNT 18.9 X10'3 (4.5-11.0)
[2018-05-24 10:21] LABS: ALANINE AMINOTRANSFERASE 23 U/L (12-78); ALBUMIN 2.2 G/DL (3.4-5.0); ALBUMIN/GLOBULIN RATIO 0.5 (1.1-1.5); ALKALINE PHOSPHATASE 54 IU/L (46-116); ANION GAP 8 (8-16); ASPARTATE AMINO TRANSFERASE 27 U/L (10-37); BILIRUBIN,TOTAL 0.6 MG/DL (0.1-1.0); BLOOD UREA NITROGEN 18 MG/DL (7-18); BUN/CREATININE RATIO 20.5 (5.4-32.0); CALCIUM 8.6 MG/DL (8.5-10.1); CHLORIDE 107 MMOL/L (99-107); CREATININE 0.88 MG/DL (0.60-1.10); GLUCOSE 101 MG/DL (70-104); POTASSIUM 3.3 MMOL/L (3.5-5.1); SODIUM 143 MMOL/L (135-145); TOTAL CARBON DIOXIDE 27.6 MMOL/L (24-32); TOTAL PROTEIN 6.3 G/DL (6.4-8.2); eGFR 85 ML/MIN
[2018-05-24] MEDS: albumin (human) 25% 100ml IV 100 ML IV SCH ×2 (13:52→17:13)
[2018-05-24] MEDS ORDERED: dexmedetomidine inj. 400 MCG in normal saline 100ml IV soln 100 ML IV PRN (17:45)
[2018-05-24] MEDS ORDERED: furosemide 40mg/4ml inj ONE (18:49)
[2018-05-24] MEDS: furosemide 40mg/4ml inj IV SCH (18:51)
[2018-05-24 19:11] LABS: ABG BASE EXCESS 0.7 mmol/L (-2.0-3.0); ABG HCO3 23.6 mmol/L (22.0-26.0); ABG OXYGEN SATURATION 94.9 % (95-98); ABG PCO2 (T) 30.7 mmHg (35.0-48.0); ABG PH (T) 7.501 (7.350-7.450); ABG PO2 (T) 75.5 mmHg (83-108); ALLEN'S TEST Positive; FCOHb 0.3 % (0.5-1.5); FMetHb 0.1 % (0.3-1.12); FO2Hb 94.5 % (94-100); MINUTE VOLUME 20 L/min; PATIENT TEMPERATURE 36.5; RESPIRATORY RATE 18 b/min; RESPIRATORY RATE (OBSERVED) 36 b/min; TOTAL HEMOGLOBIN 10.1 G/dl (14.0-18.0)
[2018-05-24] MEDS ORDERED: sulfamethoxazole/trimethoprim DS (800/160mg) tablet PO ONE (19:30)
[2018-05-24] MEDS: pantoprazole 40mg Tablet.DR PO SCH (19:44)
[2018-05-24] MEDS ORDERED: methylPREDNISolone sod succ 125mg/2ml vial IV SCH ×2 (20:00)
[2018-05-24] MEDS: dextrose 5%-1/2 normal saline 1,000 ML IV SCH (20:05)
[2018-05-24] MEDS: NS IV SCH (20:31)
[2018-05-24] MEDS: insulin glargine (Lantus) pen - multi-dose SQ SCH (20:31)
[2018-05-24] MEDS: METHYLPREDNISOLONE SOD SUC IV SCH (20:31)
[2018-05-25] VITALS (23 sets, daily range): BP systolic 91–158; BP diastolic 73–95
[2018-05-25] MEDS ORDERED: metoprolol tartrate 1mg/ml inj IV SCH (02:00)
[2018-05-25] MEDS: azithromycin/NS 500mg/250ml 250 ML IV SCH (02:22)
[2018-05-25] MEDS: ipratropium/albuterol 3ml nebule NEB SCH ×6 (03:42→23:14)
[2018-05-25 05:36] LABS: BASOPHILS % (AUTO) 0.1 % (0-1); EOSINOPHILS % (AUTO) 0 % (0-6); HEMOGLOBIN 7.6 g/dl (14.0-17.9); LYMPHOCYTES # (AUTO) 1.1 X10'3 (1.1-4.8); LYMPHOCYTES % (AUTO) 11.1 % (21-51); MEAN CORPUSCULAR HEMOGLOBIN 27.2 PG (27.0-31.0); MEAN CORPUSCULAR HGB CONC 31.4 % (33.0-36.5); MEAN CORPUSCULAR VOLUME 86.5 FL (78-98); MEAN PLATELET VOLUME 7.5 FL (7.4-10.4); MONOCYTES # (AUTO) 0.3 X10'3 (0-0.9); MONOCYTES % (AUTO) 2.8 % (2-12); NEUTROPHILS # (AUTO) 8.7 X10'3 (1.8-7.7); PLATELET COUNT 199 X10'3 (140-440); RED BLOOD COUNT 2.78 X10'6 (4.70-6.10); RED CELL DISTRIBUTION WIDTH 16.1 % (11.5-14.5); WHITE BLOOD COUNT 10.1 X10'3 (4.5-11.0)
[2018-05-25 06:01] LABS: ALANINE AMINOTRANSFERASE 18 U/L (12-78); ALBUMIN 2.6 G/DL (3.4-5.0); ALBUMIN/GLOBULIN RATIO 0.8 (1.1-1.5); ALKALINE PHOSPHATASE 41 IU/L (46-116); ANION GAP 7 (8-16); ASPARTATE AMINO TRANSFERASE 22 U/L (10-37); BILIRUBIN,TOTAL 0.7 MG/DL (0.1-1.0); BLOOD UREA NITROGEN 19 MG/DL (7-18); BUN/CREATININE RATIO 24.7 (5.4-32.0); CALCIUM 8.5 MG/DL (8.5-10.1); CHLORIDE 109 MMOL/L (99-107); CREATINE KINASE 27 U/L (39-308); CREATININE 0.77 MG/DL (0.60-1.10); PHOSPHORUS 3.1 MG/DL (2.3-4.5); POTASSIUM 3.1 MMOL/L (3.5-5.1); SODIUM 147 MMOL/L (135-145); TOTAL CARBON DIOXIDE 30.6 MMOL/L (24-32); TOTAL PROTEIN 5.8 G/DL (6.4-8.2); eGFR > 90 ML/MIN
[2018-05-25 06:06] LABS: GLUCOSE 89 MG/DL (70-104)
[2018-05-25] MEDS ORDERED: sodium phosphate inj. 30 MMOL in dextrose 5%-water 250 ML IV PRN (07:25)
[2018-05-25] MEDS ORDERED: potassium Cl 20 mEq SR tablet PO PRN (07:25)
[2018-05-25] MEDS ORDERED: potassium Cl 40MEQ/NS 500ml 500 ML IV PRN ×2 (07:25)
[2018-05-25] MEDS ORDERED: magnesium 4gm in 100ml NS 100 ML IV PRN (07:25)
[2018-05-25] MEDS ORDERED: sodium phosphate inj. 15 MMOL in dextrose 5%-water 150 ML IV PRN (07:25)
[2018-05-25] MEDS ORDERED: magnesium 1gm/100ml D5W IVPB 100 ML IV PRN (07:25)
[2018-05-25] MEDS ORDERED: Neutra Phos packet PO PRN (07:25)
[2018-05-25 07:48] LABS: RHEUM FACTOR QUAL REFLEX TITER POSITIVE (Neg)
[2018-05-25 07:49] LABS: RF TITER >320 IU/ml (Neg)
[2018-05-25] MEDS: K and/or MAG REPLACEMENT MC SCH ×2 (07:56→07:57)
[2018-05-25] MEDS: furosemide 40mg/4ml inj IV SCH ×2 (08:18→20:06)
[2018-05-25] MEDS: CefTRIAXone 2gm/D5W 50ml 50 ML IV SCH (08:18)
[2018-05-25] MEDS: lactobacillus rhamnosus 10,000 MMU CELLS/CAPSULE PO SCH ×2 (08:18→20:05)
[2018-05-25] MEDS: sulfamethoxazole/trimethoprim DS (800/160mg) tablet PO SCH (08:18)
[2018-05-25] MEDS: rivaroxaban 15mg tablet PO SCH ×2 (08:18→20:06)
[2018-05-25] MEDS: tamsulosin 0.4mg capsule PO SCH (08:18)
[2018-05-25] MEDS: NS IV SCH (08:19)
[2018-05-25] MEDS: pantoprazole 40mg Tablet.DR PO SCH ×2 (08:19→20:05)
[2018-05-25] MEDS: METHYLPREDNISOLONE SOD SUC IV SCH (08:19)
[2018-05-25] MEDS: magnesium hydroxide 30ml (MOM) UD suspension PO PRN (08:36)
[2018-05-25] MEDS: dextrose 5%-1/2 normal saline 1,000 ML IV SCH ×2 (09:23→22:35)
[2018-05-25] MEDS ORDERED: NS IV ONE (12:00)
[2018-05-25] MEDS ORDERED: METHYLPREDNISOLONE SOD SUC IV ONE (12:00)
[2018-05-25] MEDS: gabapentin 300mg capsule PO SCH ×2 (14:39→20:05)
[2018-05-25] MEDS ORDERED: bisacodyl 10mg suppository rectal RC ONE (20:00)
[2018-05-25 20:30] LABS: ABG BASE EXCESS 5.8 mmol/L (-2.0-3.0); ABG HCO3 28.4 mmol/L (22.0-26.0); ABG OXYGEN SATURATION 84.8 % (95-98); ABG PCO2 (T) 33.8 mmHg (35.0-48.0); ABG PH (T) 7.542 (7.350-7.450); ABG PO2 (T) 45.4 mmHg (83-108); ALLEN'S TEST Positive; FCOHb 0.2 % (0.5-1.5); FLOW 10 L/min; FMetHb 0.1 % (0.3-1.12); FO2Hb 84.5 % (94-100); RESPIRATORY RATE (OBSERVED) 26 b/min; TOTAL HEMOGLOBIN 9.9 G/dl (14.0-18.0)
[2018-05-25] MEDS: insulin glargine (Lantus) pen - multi-dose SQ SCH (21:00)
[2018-05-26] VITALS (24 sets, daily range): BP systolic 93–153; BP diastolic 67–98
[2018-05-26] MEDS: gabapentin 300mg capsule PO SCH ×4 (02:16→19:04)
[2018-05-26] MEDS: azithromycin/NS 500mg/250ml 250 ML IV SCH (02:17)
[2018-05-26] MEDS: ipratropium/albuterol 3ml nebule NEB SCH ×6 (03:10→23:22)
[2018-05-26 03:11] LABS: ABG BASE EXCESS 6.1 mmol/L (-2.0-3.0); ABG HCO3 29.2 mmol/L (22.0-26.0); ABG OXYGEN SATURATION 90.6 % (95-98); ABG PCO2 (T) 36.1 mmHg (35.0-48.0); ABG PH (T) 7.525 (7.350-7.450); ABG PO2 (T) 56.6 mmHg (83-108); ALLEN'S TEST Positive; FCOHb 0.3 % (0.5-1.5); FLOW 10 L/min; FMetHb 0.1 % (0.3-1.12); FO2Hb 90.2 % (94-100); PATIENT TEMPERATURE 36.8; RESPIRATORY RATE (OBSERVED) 26 b/min; TOTAL HEMOGLOBIN 10.3 G/dl (14.0-18.0)
[2018-05-26 05:20] LABS: BASOPHILS % (AUTO) 0 % (0-1); EOSINOPHILS % (AUTO) 0 % (0-6); HEMATOCRIT 29.1 % (42.0-52.0); HEMOGLOBIN 9.3 g/dl (14.0-17.9); LYMPHOCYTES # (AUTO) 1.1 X10'3 (1.1-4.8); MEAN CORPUSCULAR HGB CONC 32.1 % (33.0-36.5); MEAN CORPUSCULAR VOLUME 87.5 FL (78-98); MEAN PLATELET VOLUME 7.6 FL (7.4-10.4); MONOCYTES # (AUTO) 0.6 X10'3 (0-0.9); MONOCYTES % (AUTO) 4.4 % (2-12); NEUTROPHILS # (AUTO) 11.5 X10'3 (1.8-7.7); NEUTROPHILS % (AUTO) 87.6 % (42-75); PLATELET COUNT 193 X10'3 (140-440); RED BLOOD COUNT 3.32 X10'6 (4.70-6.10); RED CELL DISTRIBUTION WIDTH 15.9 % (11.5-14.5); WHITE BLOOD COUNT 13.1 X10'3 (4.5-11.0)
[2018-05-26 05:39] LABS: ALANINE AMINOTRANSFERASE 19 U/L (12-78); ALBUMIN 2.4 G/DL (3.4-5.0); ALBUMIN/GLOBULIN RATIO 0.8 (1.1-1.5); ALKALINE PHOSPHATASE 35 IU/L (46-116); ANION GAP 7 (8-16); ASPARTATE AMINO TRANSFERASE 17 U/L (10-37); BILIRUBIN,TOTAL 0.8 MG/DL (0.1-1.0); BLOOD UREA NITROGEN 24 MG/DL (7-18); BUN/CREATININE RATIO 26.4 (5.4-32.0); CALCIUM 7.9 MG/DL (8.5-10.1); CHLORIDE 104 MMOL/L (99-107); CREATININE 0.91 MG/DL (0.60-1.10); MAGNESIUM 2.1 MG/DL (1.5-2.4); PHOSPHORUS 2.4 MG/DL (2.3-4.5); POTASSIUM 3.1 MMOL/L (3.5-5.1); SODIUM 142 MMOL/L (135-145); TOTAL CARBON DIOXIDE 30.6 MMOL/L (24-32); TOTAL PROTEIN 5.3 G/DL (6.4-8.2); eGFR 81 ML/MIN
[2018-05-26 05:50] LABS: GLUCOSE 316 MG/DL (70-104)
[2018-05-26] MEDS ORDERED: NS IV ONE (08:00)
[2018-05-26] MEDS: K and/or MAG REPLACEMENT MC SCH (08:00)
[2018-05-26] MEDS ORDERED: METHYLPREDNISOLONE SOD SUC IV ONE (08:00)
[2018-05-26] MEDS: furosemide 40mg/4ml inj IV SCH ×2 (08:03→19:04)
[2018-05-26] MEDS: sulfamethoxazole/trimethoprim DS (800/160mg) tablet PO SCH (08:03)
[2018-05-26] MEDS: rivaroxaban 15mg tablet PO SCH ×2 (08:03→19:05)
[2018-05-26] MEDS: lactobacillus rhamnosus 10,000 MMU CELLS/CAPSULE PO SCH ×2 (08:03→19:05)
[2018-05-26] MEDS: pantoprazole 40mg Tablet.DR PO SCH ×2 (08:03→19:05)
[2018-05-26] MEDS: potassium Cl 20 mEq SR tablet PO PRN ×3 (08:03→17:04)
[2018-05-26] MEDS: tamsulosin 0.4mg capsule PO SCH (08:03)
[2018-05-26] MEDS: CefTRIAXone 2gm/D5W 50ml 50 ML IV SCH (08:10)
[2018-05-26] MEDS: metoprolol succinate 25mg (24-HOUR) SR. Tablet PO SCH (10:13)
[2018-05-26] MEDS ORDERED: methylPREDNISolone sod succ 125mg/2ml vial IV ONE (10:45)
[2018-05-26] MEDS: metoprolol tartrate 1mg/ml inj IV PRN ×2 (11:41→19:43)
[2018-05-26] MEDS: dextrose 5%-1/2 normal saline 1,000 ML IV SCH (11:55)
[2018-05-26] MEDS: sennosides/docusate sodium tablet PO SCH ×2 (12:40→19:05)
[2018-05-26] MEDS: insulin Lispro (HumaLOG) vial - multi-dose SQ SCH ×3 (13:48→20:50)
[2018-05-26] MEDS: metoprolol tartrate 25mg tablet PO SCH (16:00)
[2018-05-26 19:07] LABS: ANTI-JO-1 <0.2 AI (0.0-0.9); ANTINUCLEAR ANTIBODIES Negative (Negative)
[2018-05-26] MEDS ORDERED: magnesium 2GM in 50ml NS 50 ML IV PRN (19:34)
[2018-05-26] MEDS: insulin glargine (Lantus) pen - multi-dose SQ SCH (20:49)
[2018-05-27] VITALS (24 sets, daily range): BP systolic 40–160; BP diastolic 64–98
[2018-05-27] MEDS: gabapentin 300mg capsule PO SCH ×4 (02:11→19:41)
[2018-05-27] MEDS: metoprolol tartrate 1mg/ml inj IV PRN (02:11)
[2018-05-27] MEDS: azithromycin/NS 500mg/250ml 250 ML IV SCH (02:11)
[2018-05-27] MEDS: ipratropium/albuterol 3ml nebule NEB SCH ×6 (03:31→23:25)
[2018-05-27 05:27] LABS: BASOPHILS % (AUTO) 0 % (0-1); EOSINOPHILS # (AUTO) 0.2 X10'3 (0-0.9); EOSINOPHILS % (AUTO) 1.3 % (0-6); HEMOGLOBIN 10.8 g/dl (14.0-17.9); LYMPHOCYTES # (AUTO) 1.8 X10'3 (1.1-4.8); LYMPHOCYTES % (AUTO) 10.2 % (21-51); MEAN CORPUSCULAR HEMOGLOBIN 28.7 PG (27.0-31.0); MEAN CORPUSCULAR HGB CONC 32.6 % (33.0-36.5); MEAN PLATELET VOLUME 7.7 FL (7.4-10.4); MONOCYTES # (AUTO) 0.8 X10'3 (0-0.9); MONOCYTES % (AUTO) 4.8 % (2-12); NEUTROPHILS # (AUTO) 14.6 X10'3 (1.8-7.7); NEUTROPHILS % (AUTO) 83.7 % (42-75); PLATELET COUNT 223 X10'3 (140-440); RED BLOOD COUNT 3.75 X10'6 (4.70-6.10); RED CELL DISTRIBUTION WIDTH 15.7 % (11.5-14.5); WHITE BLOOD COUNT 17.4 X10'3 (4.5-11.0)
[2018-05-27 05:57] LABS: ALANINE AMINOTRANSFERASE 21 U/L (12-78); ALBUMIN 2.6 G/DL (3.4-5.0); ALBUMIN/GLOBULIN RATIO 0.8 (1.1-1.5); ALKALINE PHOSPHATASE 45 IU/L (46-116); ANION GAP 7 (8-16); ASPARTATE AMINO TRANSFERASE 21 U/L (10-37); BILIRUBIN,TOTAL 0.7 MG/DL (0.1-1.0); BLOOD UREA NITROGEN 29 MG/DL (7-18); BUN/CREATININE RATIO 30.2 (5.4-32.0); CALCIUM 8.7 MG/DL (8.5-10.1); CHLORIDE 105 MMOL/L (99-107); CREATININE 0.96 MG/DL (0.60-1.10); POTASSIUM 3.7 MMOL/L (3.5-5.1); SODIUM 144 MMOL/L (135-145); TOTAL CARBON DIOXIDE 32.5 MMOL/L (24-32); eGFR 77 ML/MIN
[2018-05-27 06:00] LABS: GLUCOSE 92 MG/DL (70-104)
[2018-05-27] MEDS ORDERED: predniSONE 20 mg tablet PO SCH (08:00)
[2018-05-27] MEDS: K and/or MAG REPLACEMENT MC SCH (08:00)
[2018-05-27] MEDS: sennosides/docusate sodium tablet PO SCH ×2 (08:00→19:58)
[2018-05-27] MEDS: tamsulosin 0.4mg capsule PO SCH (08:32)
[2018-05-27] MEDS: furosemide 40mg/4ml inj IV SCH ×2 (08:32→19:41)
[2018-05-27] MEDS: sulfamethoxazole/trimethoprim DS (800/160mg) tablet PO SCH (08:32)
[2018-05-27] MEDS: mycophenolate mofetil 250mg capsule PO SCH ×2 (08:32→16:02)
[2018-05-27] MEDS: CefTRIAXone 2gm/D5W 50ml 50 ML IV SCH (08:33)
[2018-05-27] MEDS: rivaroxaban 15mg tablet PO SCH ×2 (08:33→19:41)
[2018-05-27] MEDS: pantoprazole 40mg Tablet.DR PO SCH ×2 (08:33→19:41)
[2018-05-27] MEDS: metoprolol tartrate 25mg tablet PO SCH ×3 (08:33→16:03)
[2018-05-27] MEDS: lactobacillus rhamnosus 10,000 MMU CELLS/CAPSULE PO SCH ×2 (08:33→19:40)
[2018-05-27] MEDS: predniSONE 20 mg tablet PO SCH (08:33)
[2018-05-27] MEDS: insulin Lispro (HumaLOG) vial - multi-dose SQ SCH ×2 (13:42→19:47)
[2018-05-27] MEDS ORDERED: LORazepam 1 MG tablet PO ONE (21:30)
[2018-05-27] MEDS: insulin glargine (Lantus) pen - multi-dose SQ SCH (21:37)
[2018-05-28] VITALS (24 sets, daily range): BP systolic 77–160; BP diastolic 58–108
[2018-05-28] MEDS: gabapentin 300mg capsule PO SCH ×4 (00:11→20:00)
[2018-05-28] MEDS: metoprolol tartrate 25mg tablet PO SCH ×4 (00:11→22:14)
[2018-05-28] MEDS: azithromycin/NS 500mg/250ml 250 ML IV SCH (02:43)
[2018-05-28] MEDS: ipratropium/albuterol 3ml nebule NEB SCH ×6 (03:21→23:38)
[2018-05-28 05:22] LABS: BASOPHILS % (AUTO) 0.1 % (0-1); EOSINOPHILS # (AUTO) 0.1 X10'3 (0-0.9); EOSINOPHILS % (AUTO) 0.4 % (0-6); HEMATOCRIT 35.3 % (42.0-52.0); HEMOGLOBIN 11.4 g/dl (14.0-17.9); LYMPHOCYTES # (AUTO) 2.6 X10'3 (1.1-4.8); LYMPHOCYTES % (AUTO) 15.7 % (21-51); MEAN CORPUSCULAR HEMOGLOBIN 28.6 PG (27.0-31.0); MEAN CORPUSCULAR HGB CONC 32.4 % (33.0-36.5); MEAN CORPUSCULAR VOLUME 88.3 FL (78-98); MEAN PLATELET VOLUME 8.1 FL (7.4-10.4); MONOCYTES # (AUTO) 0.6 X10'3 (0-0.9); MONOCYTES % (AUTO) 3.4 % (2-12); NEUTROPHILS # (AUTO) 13.3 X10'3 (1.8-7.7); NEUTROPHILS % (AUTO) 80.4 % (42-75); PLATELET COUNT 234 X10'3 (140-440); RED CELL DISTRIBUTION WIDTH 16.3 % (11.5-14.5); WHITE BLOOD COUNT 16.6 X10'3 (4.5-11.0)
[2018-05-28 05:39] LABS: ALANINE AMINOTRANSFERASE 20 U/L (12-78); ALBUMIN 2.6 G/DL (3.4-5.0); ALBUMIN/GLOBULIN RATIO 0.8 (1.1-1.5); ALKALINE PHOSPHATASE 52 IU/L (46-116); ANION GAP 8 (8-16); ASPARTATE AMINO TRANSFERASE 24 U/L (10-37); BILIRUBIN,TOTAL 0.5 MG/DL (0.1-1.0); BLOOD UREA NITROGEN 36 MG/DL (7-18); BUN/CREATININE RATIO 34.6 (5.4-32.0); CALCIUM 8.7 MG/DL (8.5-10.1); CHLORIDE 106 MMOL/L (99-107); CREATININE 1.04 MG/DL (0.60-1.10); PHOSPHORUS 2.5 MG/DL (2.3-4.5); POTASSIUM 3.6 MMOL/L (3.5-5.1); SODIUM 146 MMOL/L (135-145); TOTAL CARBON DIOXIDE 31.6 MMOL/L (24-32); TOTAL PROTEIN 5.9 G/DL (6.4-8.2); eGFR 70 ML/MIN
[2018-05-28 05:51] LABS: GLUCOSE 89 MG/DL (70-104)
[2018-05-28] MEDS: CefTRIAXone 2gm/D5W 50ml 50 ML IV SCH (07:10)
[2018-05-28] MEDS: furosemide 40mg/4ml inj IV SCH ×2 (07:10→19:59)
[2018-05-28] MEDS: mycophenolate mofetil 250mg capsule PO SCH ×2 (07:11→16:00)
[2018-05-28] MEDS: predniSONE 20 mg tablet PO SCH (07:11)
[2018-05-28] MEDS: rivaroxaban 15mg tablet PO SCH ×2 (07:11→22:14)
[2018-05-28] MEDS: sulfamethoxazole/trimethoprim DS (800/160mg) tablet PO SCH (07:12)
[2018-05-28] MEDS: pantoprazole 40mg Tablet.DR PO SCH ×2 (07:12→22:14)
[2018-05-28] MEDS: lactobacillus rhamnosus 10,000 MMU CELLS/CAPSULE PO SCH ×2 (07:12→22:14)
[2018-05-28] MEDS: sennosides/docusate sodium tablet PO SCH ×2 (07:12→22:14)
[2018-05-28] MEDS: tamsulosin 0.4mg capsule PO SCH (07:12)
[2018-05-28 08:56] LABS: ABG BASE EXCESS 6.6 mmol/L (-2.0-3.0); ABG HCO3 29.5 mmol/L (22.0-26.0); ABG OXYGEN SATURATION 83.1 % (95-98); ABG PCO2 (T) 36.5 mmHg (35.0-48.0); ABG PH (T) 7.526 (7.350-7.450); ABG PO2 (T) 44.5 mmHg (83-108); ALLEN'S TEST Positive; FCOHb 0.9 % (0.5-1.5); FMetHb 0.1 % (0.3-1.12); FO2Hb 82.3 % (94-100); MINUTE VOLUME 21 L/min; PEEP 5 cm H2O; RESPIRATORY RATE 16 b/min; RESPIRATORY RATE (OBSERVED) 38 b/min; TIDAL VOLUME 532 mL; TOTAL HEMOGLOBIN 13.2 G/dl (14.0-18.0)
[2018-05-28] MEDS ORDERED: LORazepam 1 MG tablet PO PRN (09:10)
[2018-05-28] MEDS: LORazepam 1 MG tablet PO PRN ×2 (09:19→15:35)
[2018-05-28] MEDS ORDERED: morphine 2 MG/ML inj. syringe IV PRN (12:05)
[2018-05-28] MEDS: morphine 2 MG/ML inj. syringe IV PRN ×2 (12:07→16:22)
[2018-05-28] MEDS ORDERED: metoprolol tartrate 25mg tablet PO SCH (20:00)
[2018-05-28] MEDS: insulin glargine (Lantus) pen - multi-dose SQ SCH (22:24)
[2018-05-29] VITALS (24 sets, daily range): BP systolic 112–152; BP diastolic 77–103
[2018-05-29] MEDS: gabapentin 300mg capsule PO SCH ×4 (02:08→19:38)
[2018-05-29] MEDS: metoprolol tartrate 25mg tablet PO SCH ×4 (02:08→19:38)
[2018-05-29] MEDS: azithromycin/NS 500mg/250ml 250 ML IV SCH (02:42)
[2018-05-29] MEDS: ipratropium/albuterol 3ml nebule NEB SCH ×6 (03:14→23:20)
[2018-05-29 05:29] LABS: BASOPHILS # (AUTO) 0.1 X10'3 (0-0.2); BASOPHILS % (AUTO) 0.4 % (0-1); EOSINOPHILS # (AUTO) 0.3 X10'3 (0-0.9); EOSINOPHILS % (AUTO) 1.9 % (0-6); HEMATOCRIT 35.9 % (42.0-52.0); HEMOGLOBIN 11.4 g/dl (14.0-17.9); LYMPHOCYTES # (AUTO) 2.3 X10'3 (1.1-4.8); LYMPHOCYTES % (AUTO) 15.6 % (21-51); MEAN CORPUSCULAR HEMOGLOBIN 28.3 PG (27.0-31.0); MEAN CORPUSCULAR HGB CONC 31.8 % (33.0-36.5); MEAN PLATELET VOLUME 7.9 FL (7.4-10.4); MONOCYTES # (AUTO) 0.3 X10'3 (0-0.9); MONOCYTES % (AUTO) 2.2 % (2-12); NEUTROPHILS # (AUTO) 11.7 X10'3 (1.8-7.7); NEUTROPHILS % (AUTO) 79.9 % (42-75); PLATELET COUNT 225 X10'3 (140-440); RED BLOOD COUNT 4.03 X10'6 (4.70-6.10); WHITE BLOOD COUNT 14.7 X10'3 (4.5-11.0)
[2018-05-29 05:44] LABS: ALANINE AMINOTRANSFERASE 19 U/L (12-78); ALBUMIN 2.4 G/DL (3.4-5.0); ALBUMIN/GLOBULIN RATIO 0.6 (1.1-1.5); ALKALINE PHOSPHATASE 57 IU/L (46-116); ANION GAP 5 (8-16); ASPARTATE AMINO TRANSFERASE 18 U/L (10-37); BILIRUBIN,TOTAL 0.8 MG/DL (0.1-1.0); BLOOD UREA NITROGEN 37 MG/DL (7-18); BUN/CREATININE RATIO 32.5 (5.4-32.0); CALCIUM 8.7 MG/DL (8.5-10.1); CHLORIDE 106 MMOL/L (99-107); CREATININE 1.14 MG/DL (0.60-1.10); PHOSPHORUS 2.9 MG/DL (2.3-4.5); POTASSIUM 3.6 MMOL/L (3.5-5.1); SODIUM 144 MMOL/L (135-145); TOTAL CARBON DIOXIDE 33.3 MMOL/L (24-32); TOTAL PROTEIN 6.2 G/DL (6.4-8.2); eGFR 63 ML/MIN
[2018-05-29 05:46] LABS: GLUCOSE 67 MG/DL (70-104)
[2018-05-29] MEDS: CefTRIAXone 2gm/D5W 50ml 50 ML IV SCH (07:18)
[2018-05-29] MEDS: sulfamethoxazole/trimethoprim DS (800/160mg) tablet PO SCH (07:19)
[2018-05-29] MEDS: sennosides/docusate sodium tablet PO SCH ×2 (07:20→19:37)
[2018-05-29] MEDS: tamsulosin 0.4mg capsule PO SCH (07:20)
[2018-05-29] MEDS: lactobacillus rhamnosus 10,000 MMU CELLS/CAPSULE PO SCH ×2 (07:20→19:37)
[2018-05-29] MEDS: predniSONE 20 mg tablet PO SCH (07:20)
[2018-05-29] MEDS: mycophenolate mofetil 250mg capsule PO SCH ×2 (07:20→17:33)
[2018-05-29] MEDS: rivaroxaban 15mg tablet PO SCH ×2 (07:20→19:37)
[2018-05-29] MEDS: pantoprazole 40mg Tablet.DR PO SCH ×2 (07:20→19:37)
[2018-05-29] MEDS: furosemide 40mg/4ml inj IV SCH ×2 (07:21→19:38)
[2018-05-29] MEDS: insulin Lispro (HumaLOG) vial - multi-dose SQ SCH ×2 (14:05→19:41)
[2018-05-29] MEDS: insulin glargine (Lantus) pen - multi-dose SQ SCH (21:56)
[2018-05-30] VITALS (23 sets, daily range): BP systolic 91–137; BP diastolic 64–87
[2018-05-30] MEDS: gabapentin 300mg capsule PO SCH ×4 (02:00→20:00)
[2018-05-30] MEDS: metoprolol tartrate 25mg tablet PO SCH ×4 (02:15→21:15)
[2018-05-30] MEDS: azithromycin/NS 500mg/250ml 250 ML IV SCH (03:23)
[2018-05-30] MEDS: ipratropium/albuterol 3ml nebule NEB SCH ×6 (03:29→23:53)
[2018-05-30 04:59] LABS: BASOPHILS % (AUTO) 0.2 % (0-1); EOSINOPHILS % (AUTO) 0.3 % (0-6); HEMATOCRIT 33.8 % (42.0-52.0); HEMOGLOBIN 10.6 g/dl (14.0-17.9); LYMPHOCYTES # (AUTO) 2.5 X10'3 (1.1-4.8); LYMPHOCYTES % (AUTO) 17.5 % (21-51); MEAN CORPUSCULAR HEMOGLOBIN 27.9 PG (27.0-31.0); MEAN CORPUSCULAR HGB CONC 31.4 % (33.0-36.5); MEAN CORPUSCULAR VOLUME 88.8 FL (78-98); MONOCYTES # (AUTO) 0.7 X10'3 (0-0.9); MONOCYTES % (AUTO) 4.6 % (2-12); NEUTROPHILS # (AUTO) 11.1 X10'3 (1.8-7.7); NEUTROPHILS % (AUTO) 77.4 % (42-75); PLATELET COUNT 229 X10'3 (140-440); RED CELL DISTRIBUTION WIDTH 15.9 % (11.5-14.5); WHITE BLOOD COUNT 14.4 X10'3 (4.5-11.0)
[2018-05-30 05:20] LABS: MAGNESIUM 1.9 MG/DL (1.5-2.4); POTASSIUM 3.3 MMOL/L (3.5-5.1)
[2018-05-30 05:36] LABS: ALANINE AMINOTRANSFERASE 20 U/L (12-78); ALBUMIN 2.2 G/DL (3.4-5.0); ALBUMIN/GLOBULIN RATIO 0.6 (1.1-1.5); ALKALINE PHOSPHATASE 64 IU/L (46-116); ASPARTATE AMINO TRANSFERASE 17 U/L (10-37); BILIRUBIN,TOTAL 0.6 MG/DL (0.1-1.0); BLOOD UREA NITROGEN 32 MG/DL (7-18); BUN/CREATININE RATIO 35.6 (5.4-32.0); CALCIUM 8.2 MG/DL (8.5-10.1); TOTAL CARBON DIOXIDE 31.9 MMOL/L (24-32); TOTAL PROTEIN 5.6 G/DL (6.4-8.2); eGFR 82 ML/MIN
[2018-05-30] MEDS: potassium Cl 20 mEq SR tablet PO PRN ×3 (05:39→18:52)
[2018-05-30 05:47] LABS: ANION GAP 7 (8-16); CHLORIDE 106 MMOL/L (99-107); SODIUM 145 MMOL/L (135-145)
[2018-05-30 05:51] LABS: GLUCOSE 49 MG/DL (70-104)
[2018-05-30] MEDS: mycophenolate mofetil 250mg capsule PO SCH ×2 (07:51→17:36)
[2018-05-30] MEDS: tamsulosin 0.4mg capsule PO SCH (09:04)
[2018-05-30] MEDS: predniSONE 20 mg tablet PO SCH (09:04)
[2018-05-30] MEDS: sennosides/docusate sodium tablet PO SCH ×2 (09:04→20:14)
[2018-05-30] MEDS: rivaroxaban 15mg tablet PO SCH ×2 (09:05→20:14)
[2018-05-30] MEDS: CefTRIAXone 2gm/D5W 50ml 50 ML IV SCH (09:05)
[2018-05-30] MEDS: sulfamethoxazole/trimethoprim DS (800/160mg) tablet PO SCH (09:05)
[2018-05-30] MEDS: pantoprazole 40mg Tablet.DR PO SCH ×2 (09:05→20:14)
[2018-05-30] MEDS: lactobacillus rhamnosus 10,000 MMU CELLS/CAPSULE PO SCH (09:05)
[2018-05-30] MEDS: furosemide 40mg/4ml inj IV SCH ×2 (09:09→20:15)
[2018-05-30] MEDS: insulin Lispro (HumaLOG) vial - multi-dose SQ SCH (09:23)
[2018-05-30] MEDS: lactose-reduced food (Ensure High Protein) 237ml bottle PO SCH ×2 (13:00→18:51)
[2018-05-30] MEDS: insulin glargine (Lantus) pen - multi-dose SQ SCH (22:07)
[2018-05-31] MEDS: gabapentin 300mg capsule PO SCH ×4 (01:57→20:53)
[2018-05-31] MEDS: metoprolol tartrate 25mg tablet PO SCH ×4 (01:57→20:54)
[2018-05-31 03:00] VITALS: BP 111/87
[2018-05-31] MEDS: azithromycin/NS 500mg/250ml 250 ML IV SCH (03:26)
[2018-05-31] MEDS: ipratropium/albuterol 3ml nebule NEB SCH ×6 (03:48→23:31)
[2018-05-31] MEDS: morphine 2 MG/ML inj. syringe IV PRN ×2 (04:13→17:45)
[2018-05-31 06:58] LABS: BASOPHILS % (AUTO) 0.1 % (0-1); EOSINOPHILS # (AUTO) 0.2 X10'3 (0-0.9); EOSINOPHILS % (AUTO) 1.5 % (0-6); HEMATOCRIT 34.1 % (42.0-52.0); HEMOGLOBIN 10.9 g/dl (14.0-17.9); LYMPHOCYTES # (AUTO) 2.4 X10'3 (1.1-4.8); LYMPHOCYTES % (AUTO) 17.6 % (21-51); MEAN CORPUSCULAR HEMOGLOBIN 28.4 PG (27.0-31.0); MEAN CORPUSCULAR HGB CONC 32.1 % (33.0-36.5); MEAN CORPUSCULAR VOLUME 88.5 FL (78-98); MONOCYTES # (AUTO) 0.3 X10'3 (0-0.9); MONOCYTES % (AUTO) 2.5 % (2-12); NEUTROPHILS # (AUTO) 10.5 X10'3 (1.8-7.7); NEUTROPHILS % (AUTO) 78.3 % (42-75); PLATELET COUNT 187 X10'3 (140-440); RED BLOOD COUNT 3.85 X10'6 (4.70-6.10); RED CELL DISTRIBUTION WIDTH 16.8 % (11.5-14.5); WHITE BLOOD COUNT 13.4 X10'3 (4.5-11.0)
[2018-05-31 07:00] VITALS: BP 121/85
[2018-05-31 07:58] LABS: PHOSPHORUS 2.8 MG/DL (2.3-4.5); POTASSIUM 4.5 MMOL/L (3.5-5.1)
[2018-05-31] MEDS: lactose-reduced food (Ensure High Protein) 237ml bottle PO SCH ×3 (08:00→18:00)
[2018-05-31] MEDS: furosemide 40mg/4ml inj IV SCH ×2 (08:56→20:53)
[2018-05-31] MEDS: pantoprazole 40mg Tablet.DR PO SCH ×2 (08:57→20:53)
[2018-05-31] MEDS: sennosides/docusate sodium tablet PO SCH ×2 (08:57→20:53)
[2018-05-31] MEDS: sulfamethoxazole/trimethoprim DS (800/160mg) tablet PO SCH (08:58)
[2018-05-31] MEDS: predniSONE 20 mg tablet PO SCH (08:58)
[2018-05-31] MEDS: tamsulosin 0.4mg capsule PO SCH (08:58)
[2018-05-31] MEDS: CefTRIAXone 2gm/D5W 50ml 50 ML IV SCH (08:59)
[2018-05-31] MEDS: rivaroxaban 15mg tablet PO SCH ×2 (10:01→20:53)
[2018-05-31] MEDS: mycophenolate mofetil 250mg capsule PO SCH ×2 (10:01→17:45)
[2018-05-31 11:00] VITALS: BP 116/87
[2018-05-31 15:00] VITALS: BP 121/73
[2018-05-31 19:00] VITALS: BP 102/72
[2018-05-31] MEDS: insulin Lispro (HumaLOG) vial - multi-dose SQ SCH (19:21)
[2018-05-31 23:00] VITALS: BP 108/71
[2018-06-01 03:00] VITALS: BP 119/75
[2018-06-01] MEDS: metoprolol tartrate 25mg tablet PO SCH ×4 (03:03→20:00)
[2018-06-01] MEDS: gabapentin 300mg capsule PO SCH ×4 (03:03→20:37)
[2018-06-01] MEDS: azithromycin/NS 500mg/250ml 250 ML IV SCH (03:04)
[2018-06-01] MEDS: ipratropium/albuterol 3ml nebule NEB SCH ×6 (03:55→23:47)
[2018-06-01 05:47] LABS: BASOPHILS % (AUTO) 0.2 % (0-1); EOSINOPHILS # (AUTO) 0.2 X10'3 (0-0.9); EOSINOPHILS % (AUTO) 1.8 % (0-6); HEMATOCRIT 35.1 % (42.0-52.0); HEMOGLOBIN 11.4 g/dl (14.0-17.9); LYMPHOCYTES % (AUTO) 14.5 % (21-51); MEAN CORPUSCULAR HEMOGLOBIN 28.7 PG (27.0-31.0); MEAN CORPUSCULAR HGB CONC 32.5 % (33.0-36.5); MEAN CORPUSCULAR VOLUME 88.1 FL (78-98); MEAN PLATELET VOLUME 8.2 FL (7.4-10.4); MONOCYTES # (AUTO) 0.6 X10'3 (0-0.9); MONOCYTES % (AUTO) 4.1 % (2-12); NEUTROPHILS # (AUTO) 11.2 X10'3 (1.8-7.7); NEUTROPHILS % (AUTO) 79.4 % (42-75); PLATELET COUNT 228 X10'3 (140-440); RED BLOOD COUNT 3.99 X10'6 (4.70-6.10); RED CELL DISTRIBUTION WIDTH 16.2 % (11.5-14.5); WHITE BLOOD COUNT 14.1 X10'3 (4.5-11.0)
[2018-06-01 06:00] VITALS: BP 123/73
[2018-06-01 06:04] LABS: MAGNESIUM 1.9 MG/DL (1.5-2.4); PHOSPHORUS 3.2 MG/DL (2.3-4.5); POTASSIUM 3.7 MMOL/L (3.5-5.1)
[2018-06-01] MEDS: lactose-reduced food (Ensure High Protein) 237ml bottle PO SCH ×3 (08:00→18:00)
[2018-06-01] MEDS: furosemide 40mg/4ml inj IV SCH ×2 (09:00→20:37)
[2018-06-01] MEDS: pantoprazole 40mg Tablet.DR PO SCH ×2 (09:03→20:39)
[2018-06-01] MEDS: sennosides/docusate sodium tablet PO SCH ×2 (09:03→20:39)
[2018-06-01] MEDS: predniSONE 20 mg tablet PO SCH (09:04)
[2018-06-01] MEDS: sulfamethoxazole/trimethoprim DS (800/160mg) tablet PO SCH (09:05)
[2018-06-01] MEDS: rivaroxaban 15mg tablet PO SCH ×2 (09:05→20:39)
[2018-06-01] MEDS: tamsulosin 0.4mg capsule PO SCH (09:05)
[2018-06-01] MEDS: CefTRIAXone 2gm/D5W 50ml 50 ML IV SCH (09:07)
[2018-06-01 11:00] VITALS: BP 130/69
[2018-06-01] MEDS: insulin Lispro (HumaLOG) vial - multi-dose SQ SCH ×2 (14:21→19:01)
[2018-06-01 15:00] VITALS: BP 108/75
[2018-06-01 18:00] VITALS: BP 94/62
[2018-06-01] MEDS: mycophenolate mofetil 250mg capsule PO SCH (20:00)
[2018-06-01] MEDS: brimonidine 0.2% 5 ML ophthalmic drops LEFTEYE SCH (20:39)
[2018-06-01] MEDS: dorzolamide 2% ophthalmic drops 10ml LEFTEYE SCH (20:40)
[2018-06-01] MEDS: insulin glargine (Lantus) pen - multi-dose SQ SCH (20:55)
[2018-06-01 22:00] VITALS: BP 108/86
[2018-06-02 02:00] VITALS: BP 133/79
[2018-06-02] MEDS: azithromycin/NS 500mg/250ml 250 ML IV SCH (02:33)
[2018-06-02] MEDS: gabapentin 300mg capsule PO SCH ×3 (02:33→14:12)
[2018-06-02] MEDS: metoprolol tartrate 25mg tablet PO SCH ×3 (02:38→14:00)
[2018-06-02 02:50] VITALS: BP 118/73
[2018-06-02] MEDS: ipratropium/albuterol 3ml nebule NEB SCH ×3 (03:27→11:27)
[2018-06-02 07:00] VITALS: BP 111/77
[2018-06-02] MEDS: mycophenolate mofetil 250mg capsule PO SCH ×2 (07:00→17:09)
[2018-06-02] MEDS: lactose-reduced food (Ensure High Protein) 237ml bottle PO SCH ×2 (08:00→13:57)
[2018-06-02] MEDS: furosemide 40mg/4ml inj IV SCH (08:50)
[2018-06-02] MEDS: rivaroxaban 15mg tablet PO SCH ×2 (08:51→09:28)
[2018-06-02] MEDS: sennosides/docusate sodium tablet PO SCH (08:55)
[2018-06-02] MEDS: predniSONE 20 mg tablet PO SCH (08:55)
[2018-06-02] MEDS: tamsulosin 0.4mg capsule PO SCH (08:56)
[2018-06-02] MEDS: sulfamethoxazole/trimethoprim DS (800/160mg) tablet PO SCH (08:56)
[2018-06-02] MEDS: pantoprazole 40mg Tablet.DR PO SCH (08:56)
[2018-06-02] MEDS: CefTRIAXone 2gm/D5W 50ml 50 ML IV SCH (08:58)
[2018-06-02] MEDS: brimonidine 0.2% 5 ML ophthalmic drops LEFTEYE SCH (09:29)
[2018-06-02] MEDS: dorzolamide 2% ophthalmic drops 10ml LEFTEYE SCH (09:29)
[2018-06-02 11:00] VITALS: BP 101/60
[2018-06-02] MEDS: insulin Lispro (HumaLOG) vial - multi-dose SQ SCH (14:19)
[2018-06-02 15:00] VITALS: BP 90/64
[2018-06-06 13:02] LABS: OCCULT BLOOD STOOL NEGATIVE (Neg)
== END 2018-06-02 19:11 | DRG 871 ==
LOC: ER 12:54 → ED HOLD 14:58 → PCU 3S 16:15 → CICU 2S 05-20 02:00 → PCU 3S 05-23 11:39 → CICU 2S 05-24 18:13 → PCU 3S 05-31
PROVIDERS: ADMIT Internal Medicine; ATTEND Internal Medicine
PROC: B32T1ZZ Computerized Tomography (CT Scan) of Left Pulmonary Artery using Low Osmolar Contrast (ICD-10-PCS; 2018-05-19)
PROC: B3201ZZ Computerized Tomography (CT Scan) of Thoracic Aorta using Low Osmolar Contrast (ICD-10-PCS; 2018-05-19)
PROC: B32S1ZZ Computerized Tomography (CT Scan) of Right Pulmonary Artery using Low Osmolar Contrast (ICD-10-PCS; 2018-05-19)
PROC: 5A1945Z Respiratory Ventilation, 24-96 Consecutive Hours (ICD-10-PCS; principal; 2018-05-20)
PROC: 0BH17EZ Insertion of Endotracheal Airway into Trachea, Via Natural or Artificial Opening (ICD-10-PCS; 2018-05-20)
PROC: 30233N1 Transfusion of Nonautologous Red Blood Cells into Peripheral Vein, Percutaneous Approach (ICD-10-PCS; 2018-05-21)
PROC: 5A09357 Assistance with Respiratory Ventilation, Less than 24 Consecutive Hours, Continuous Positive Airway Pressure (ICD-10-PCS; 2018-05-24)
PROC: 30233N1 Transfusion of Nonautologous Red Blood Cells into Peripheral Vein, Percutaneous Approach (ICD-10-PCS; 2018-05-25)
PROC: 5A09357 Assistance with Respiratory Ventilation, Less than 24 Consecutive Hours, Continuous Positive Airway Pressure (ICD-10-PCS; 2018-05-28)
DX: A41.9 Sepsis, unspecified organism (principal); J18.9 Pneumonia, unspecified organism; J96.21 Acute and chronic respiratory failure with hypoxia; J96.22 Acute and chronic respiratory failure with hypercapnia; I48.1 Persistent atrial fibrillation; E46 Unspecified protein-calorie malnutrition; J44.0 Chronic obstructive pulmonary disease with (acute) lower respiratory infection; M33.13 Other dermatomyositis without myopathy; J44.1 Chronic obstructive pulmonary disease with (acute) exacerbation; D64.9 Anemia, unspecified; G89.4 Chronic pain syndrome; R73.03 Prediabetes; I50.9 Heart failure, unspecified; J84.10 Pulmonary fibrosis, unspecified; N28.9 Disorder of kidney and ureter, unspecified; T38.0X5A Adverse effect of glucocorticoids and synthetic analogues, initial encounter; G62.9 Polyneuropathy, unspecified; Z79.01 Long term (current) use of anticoagulants; Z79.899 Other long term (current) drug therapy; Z79.84 Long term (current) use of oral hypoglycemic drugs; Z86.711 Personal history of pulmonary embolism; Z87.891 Personal history of nicotine dependence; Y92.89 Other specified places as the place of occurrence of the external cause; Z68.22 Body mass index [BMI] 22.0-22.9, adult
CPT/HCPCS: 36415; 36600; 71045; 71275; 74018; 76937; 80053; 81001; 82272; 82550; 82803; 82948; 83036; 83605; 83735; 83880; 84100; 84132; 84145; 84484; 85018; 85025; 85027; 85379; 85610; 85730; 86038; 86256; 86430; 86431; 86885; 86900; 86901; 86920; 87040; 87070; 93005; 93306; 93970; 94002; 94003; 94640; 94660; 94760; 96374; 97110; 97116; 97162; 97530; 99285; C9113; G0378; J0456; J0696; J1815; J1940; J2250; J2270; J2930; J3480; J3490; J7030; J7060; J7512; J7517; P9016; P9047; Q9967